=== PATIENT | male | born 1970 | race Caucasian/White ===

== ENCOUNTER 2022-04-29 00:56 | Emergency (ER) | payer BC ==
[2022-04-29] MEDS ORDERED: Ondansetron ODT 8 MG TAB ONE (01:02)
[2022-04-29] MEDS ORDERED: Morphine 4 MG/ML VIAL ONE (01:55)
[2022-04-29 02:02] LABS: #Lymphocytes 3.2 thou/uL (1.20-3.40); #Monocytes 1.1 thou/uL (0.11-0.59); #Neutrophils 12.6 thou/uL (1.40-6.50); %Basophils 0.2 % (0.0-1.0); %Eosinophils 0.1 % (0.0-10.0); %Lymphocytes 18.8 % (21.0-51.0); %Monocytes 6.6 % (0.0-10.0); %Neutrophils 74.4 % (42.0-75.0); Hemoglobin 13.3 g/dL (14.0-18.0); Mean Corpuscular HGB CONC 33.4 g/dL (32.0-36.0); Mean Corpuscular Volume 92.8 fL (78.0-98.0); Mean Platelet Volume 8.4 fL (7.4-10.4); Platelet Count 395 thou/uL (130-400); RBC Distribution Width 11.5 % (11.5-14.5); Red Blood Cell (RBC) Count 4.29 mill/uL (4.70-6.10); White Blood Cell (WBC) Count 16.9 thou/uL (4.8-10.8)
[2022-04-29] MEDS ORDERED: Ondansetron PF 4 MG/2 ML Vial ONE (02:09)
[2022-04-29 02:18] LABS: ALT (SGPT) 12 U/L (8-55); AST (SGOT) 13 U/L (5-34); Albumin 4.6 g/dL (3.5-5.0); Alkaline Phosphatase 83 U/L (40-110); Anion Gap 20 mmol/L (10-20); BUN (Urea Nitrogen) 30 mg/dL (8.4-25.7); Bilirubin, Total 1.1 mg/dL (0.2-1.2); Calc. Creatinine Clearance 0 mL/min (70-130); Calcium 9.7 mg/dL (7.8-10.44); Carbon Dioxide 20 mmol/L (22-29); Chloride 94 mmol/L (98-107); Estimated GFR 56; Globulin 3.4 g/dL (2.4-3.5); Glucose 287 mg/dL (70-105); Lipase 16 U/L (8-78); Potassium 3.7 mmol/L (3.5-5.1); Sodium 130 mmol/L (136-145)
[2022-04-29] MEDS ORDERED: diphenhydrAMINE 50 MG/ML VIAL ONE (03:07)
[2022-04-29] MEDS ORDERED: Haloperidol Lactate 5 MG/ML VIAL ONE (03:07)
[2022-04-29] MEDS ORDERED: Ketorolac Tromethamine 30 MG/ML VIAL ONE (06:05)
[2022-04-29] MEDS ORDERED: Midazolam HCl 2 mg/2 ml Vial ONE (06:05)
[2022-04-29] MEDS ORDERED: Iopamidol-370 76% 500 ML 1 ML ONE (08:34)
== END 2022-04-29 06:50 | disposition home or self-care (01) ==
LOC: ERS 00:56
DX: R10.13 Epigastric pain (principal); R73.9 Hyperglycemia, unspecified; R33.9 Retention of urine, unspecified; R11.2 Nausea with vomiting, unspecified
CPT/HCPCS: 36415; 51702; 74177; 76705; 80053; 83690; 84484; 85025; 86850; 86900; 86901; 93005; 96374; 96375; J1200; J1630; J1885; J2250; J2270; J2405; Q0162; Q9967

== ENCOUNTER 2022-04-30 11:40 | Inpatient (IN) | payer BC ==
[2022-04-30] MEDS ORDERED: Morphine 4 MG/ML VIAL ONE (12:18)
[2022-04-30] MEDS ORDERED: Ondansetron PF 4 MG/2 ML Vial ONE ×2 (12:18→14:07)
[2022-04-30] MEDS ORDERED: Pantoprazole 40 MG VIAL ONE (12:18)
[2022-04-30 12:21] LABS: #Lymphocytes 1.8 thou/uL (1.20-3.40); #Monocytes 0.8 thou/uL (0.11-0.59); #Neutrophils 14.4 thou/uL (1.40-6.50); %Basophils 0.1 % (0.0-1.0); %Lymphocytes 10.3 % (21.0-51.0); %Monocytes 4.5 % (0.0-10.0); Mean Corpuscular HGB CONC 33.1 g/dL (32.0-36.0); Mean Corpuscular Hemoglobin 31.1 pg (27.0-31.0); Mean Corpuscular Volume 94.1 fL (78.0-98.0); Mean Platelet Volume 8.4 fL (7.4-10.4); Platelet Count 404 thou/uL (130-400); RBC Distribution Width 11.6 % (11.5-14.5); Red Blood Cell (RBC) Count 4.51 mill/uL (4.70-6.10)
[2022-04-30 12:59] LABS: ALT (SGPT) 12 U/L (8-55); AST (SGOT) 13 U/L (5-34); Albumin 4.5 g/dL (3.5-5.0); Alkaline Phosphatase 80 U/L (40-110); Anion Gap 19 mmol/L (10-20); BUN (Urea Nitrogen) 28 mg/dL (8.4-25.7); Calc. Creatinine Clearance 0 mL/min (70-130); Calcium 9.7 mg/dL (7.8-10.44); Carbon Dioxide 22 mmol/L (22-29); Estimated GFR 74; Globulin 3.6 g/dL (2.4-3.5); Glucose 283 mg/dL (70-105); Lipase 4 U/L (8-78); Potassium 3.9 mmol/L (3.5-5.1); Protein, Total 8.1 g/dL (6.0-8.3)
[2022-04-30 13:26] LABS: Chloride 97 mmol/L (98-107); Sodium 134 mmol/L (136-145)
[2022-04-30] MEDS ORDERED: Promethazine HCl 25 MG in Sodium Chloride 0.9% 50 ML IVPB SCH (14:30)
[2022-04-30 15:11] LABS: Bacteria/HPF Rare-Few HPF (None Seen); Bilirubin Negative (Negative); Blood, Urine 3+ (Negative); Clarity Hazy (Clear); Glucose, Urine (Dipstick) Greater than 1000 mg/dL (Negative); Ketone, Urine 100 mg/dL (Negative); Leukocyte 25 Leu/uL (Negative); Nitrite Negative (Negative); Protein, Urine (Dipstick) 30 mg/dL (Neg-Trace); RBC/HPF 21-50 HPF (0-3); Specific Gravity, Urine 1.026 (1.002-1.036); Squamous Epithelial 0-3 HPF (0-3); Urobilinogen Normal mg/dL (Less than 2); pH, Urine 5.5 (5.0-9.0)
[2022-04-30 16:24] VITALS: BMI 22.8
[2022-04-30] MEDS ORDERED: Sodium Chloride 0.9% 1,000 ML IV SCH (16:30)
[2022-04-30] MEDS ORDERED: Ondansetron PF 4 MG/2 ML Vial IVP PRN (16:30)
[2022-04-30] MEDS ORDERED: Ondansetron ODT 4 MG TAB SL PRN (16:30)
[2022-04-30] MEDS ORDERED: Morphine 2 MG/ML VIAL SLOW IVP PRN (16:35)
[2022-04-30] MEDS ORDERED: Acetaminophen 325 MG TAB PO PRN (16:38)
[2022-04-30] MEDS ORDERED: Electrolyte Replacement Protocol 1 EACH FS SCH (16:45)
[2022-04-30] MEDS: Sodium Chloride 0.9% 1,000 ML IV SCH (16:53)
[2022-04-30] MEDS: cefTRIAXone\\ROCEPHIN 1 GM in Sodium Chloride 0.9% 100 ML IVPB SCH (16:57)
[2022-04-30] MEDS: Morphine 4 MG/ML VIAL SLOW IVP PRN (17:45)
[2022-04-30] MEDS: Promethazine HCl 12.5 MG in Sodium Chloride 0.9% 50 ML IVPB PRN (19:50)
[2022-04-30] MEDS: Pantoprazole 40 MG VIAL IVP SCH (19:51)
[2022-04-30] MEDS: Tamsulosin HCl 0.4 MG CAP PO SCH (19:52)
[2022-05-01] MEDS: Sodium Chloride 0.9% 1,000 ML IV SCH ×5 (01:54→22:25)
[2022-05-01] MEDS: Morphine 4 MG/ML VIAL SLOW IVP PRN ×4 (04:25→20:52)
[2022-05-01] MEDS: Promethazine HCl 12.5 MG in Sodium Chloride 0.9% 50 ML IVPB PRN ×3 (04:27→20:40)
[2022-05-01 06:00] LABS: Anion Gap 15 mmol/L (10-20); BUN (Urea Nitrogen) 18 mg/dL (8.4-25.7); Calc. Creatinine Clearance 98 mL/min (70-130); Calcium 8.7 mg/dL (7.8-10.44); Carbon Dioxide 22 mmol/L (22-29); Chloride 104 mmol/L (98-107); Estimated GFR 105; Glucose 174 mg/dL (70-105); Magnesium 2.2 mg/dL (1.6-2.6); Potassium 3.2 mmol/L (3.5-5.1); Sodium 138 mmol/L (136-145)
[2022-05-01 06:27] LABS: Hemoglobin 12.9 g/dL (14.0-18.0); Lymphocytes 26 % (21-51); MDiff Complete? YES; Mean Corpuscular HGB CONC 32.2 g/dL (32.0-36.0); Mean Corpuscular Hemoglobin 30.5 pg (27.0-31.0); Mean Corpuscular Volume 94.6 fL (78.0-98.0); Mean Platelet Volume 8.6 fL (7.4-10.4); Monocytes 12 % (0-10); Neutrophil 59 % (42-75); Platelet Count 396 thou/uL (130-400); Platelet Morphology Comment Appears Adequate; RBC Distribution Width 11.7 % (11.5-14.5); RBC Morphology Normal; Reactive Lymphocytes 3 % (0-10); Red Blood Cell (RBC) Count 4.22 mill/uL (4.70-6.10); White Blood Cell (WBC) Count 20.1 thou/uL (4.8-10.8)
[2022-05-01] MEDS ORDERED: Potassium Chloride 20 MEQ TAB PO SCH (08:00)
[2022-05-01] MEDS: hydrALAZINE 20 MG/ML VIAL SLOW IVP PRN ×2 (08:05→22:23)
[2022-05-01] MEDS: Pantoprazole 40 MG VIAL IVP SCH ×2 (08:27→20:39)
[2022-05-01] MEDS ORDERED: FLU VACC QS2022-23(6MOS UP)/PF 60 MCG/0.5 ML SYRINGE IM ONE (09:00)
[2022-05-01] MEDS ORDERED: Ondansetron PF 4 MG/2 ML Vial IVP SCH (09:15)
[2022-05-01] MEDS ORDERED: Dextrose 5% in Water 1,000 ML IV PRN (14:07)
[2022-05-01] MEDS ORDERED: HumaLOG 300 UNITS/3 ML VIAL SC PRN ×2 (14:07)
[2022-05-01] MEDS ORDERED: Dextrose 50% Abboject 50 ML SYRINGE SLOW IVP PRN (14:07)
[2022-05-01] MEDS: Ondansetron PF 4 MG/2 ML Vial IVP PRN (14:19)
[2022-05-01] MEDS: Metoclopramide HCl 10 MG/2 ML VIAL IVP SCH ×2 (15:16→20:40)
[2022-05-01] MEDS: cefTRIAXone\\ROCEPHIN 1 GM in Sodium Chloride 0.9% 100 ML IVPB SCH (17:16)
[2022-05-01] MEDS: Tamsulosin HCl 0.4 MG CAP PO SCH (20:40)
[2022-05-02] MEDS: Sodium Chloride 0.9% 1,000 ML IV SCH ×5 (02:15→17:37)
[2022-05-02] MEDS: Metoclopramide HCl 10 MG/2 ML VIAL IVP SCH ×4 (02:41→19:46)
[2022-05-02] MEDS: Promethazine HCl 12.5 MG in Sodium Chloride 0.9% 50 ML IVPB PRN (02:49)
[2022-05-02] MEDS: Morphine 4 MG/ML VIAL SLOW IVP PRN ×4 (04:59→23:31)
[2022-05-02 06:14] LABS: #Lymphocytes 2.1 thou/uL (1.20-3.40); #Monocytes 1.1 thou/uL (0.11-0.59); #Neutrophils 10.3 thou/uL (1.40-6.50); %Basophils 0.1 % (0.0-1.0); %Eosinophils 0.2 % (0.0-10.0); %Lymphocytes 15.2 % (21.0-51.0); %Monocytes 7.8 % (0.0-10.0); %Neutrophils 76.7 % (42.0-75.0); Hemoglobin 12.3 g/dL (14.0-18.0); Mean Corpuscular Hemoglobin 30.8 pg (27.0-31.0); Mean Corpuscular Volume 96.2 fL (78.0-98.0); Mean Platelet Volume 8.6 fL (7.4-10.4); Platelet Count 368 thou/uL (130-400); RBC Distribution Width 11.7 % (11.5-14.5); Red Blood Cell (RBC) Count 3.98 mill/uL (4.70-6.10); White Blood Cell (WBC) Count 13.5 thou/uL (4.8-10.8)
[2022-05-02 06:53] LABS: Anion Gap 17 mmol/L (10-20); BUN (Urea Nitrogen) 17 mg/dL (8.4-25.7); Calc. Creatinine Clearance 99 mL/min (70-130); Calcium 8.2 mg/dL (7.8-10.44); Carbon Dioxide 19 mmol/L (22-29); Chloride 108 mmol/L (98-107); Estimated GFR 105; Glucose 184 mg/dL (70-105); Potassium 3.3 mmol/L (3.5-5.1); Sodium 141 mmol/L (136-145)
[2022-05-02] MEDS ORDERED: Potassium Chloride 20 MEQ TAB PO SCH (08:00)
[2022-05-02] MEDS: Pantoprazole 40 MG VIAL IVP SCH ×2 (09:05→19:46)
[2022-05-02] MEDS: hydrALAZINE 20 MG/ML VIAL SLOW IVP PRN ×2 (09:18→19:45)
[2022-05-02] MEDS ORDERED: Amlodipine 5 MG TAB PO SCH (11:15)
[2022-05-02] MEDS: Tamsulosin HCl 0.4 MG CAP PO SCH (19:46)
[2022-05-02] MEDS: Ondansetron PF 4 MG/2 ML Vial IVP PRN (23:29)
[2022-05-03] MEDS: Metoclopramide HCl 10 MG/2 ML VIAL IVP SCH ×4 (02:36→20:27)
[2022-05-03] MEDS: Sodium Chloride 0.9% 1,000 ML IV SCH ×4 (02:59→20:27)
[2022-05-03] MEDS: Promethazine HCl 12.5 MG in Sodium Chloride 0.9% 50 ML IVPB PRN ×2 (03:13→14:44)
[2022-05-03] MEDS: hydrALAZINE 20 MG/ML VIAL SLOW IVP PRN (03:18)
[2022-05-03] MEDS: Ondansetron PF 4 MG/2 ML Vial IVP PRN (05:05)
[2022-05-03 07:00] LABS: #Lymphocytes 2.6 thou/uL (1.20-3.40); %Eosinophils 0.2 % (0.0-10.0); %Lymphocytes 17.7 % (21.0-51.0); %Monocytes 6.6 % (0.0-10.0); %Neutrophils 75.4 % (42.0-75.0); Hemoglobin 12.5 g/dL (14.0-18.0); Mean Corpuscular HGB CONC 33.4 g/dL (32.0-36.0); Mean Corpuscular Hemoglobin 32.2 pg (27.0-31.0); Mean Corpuscular Volume 96.2 fL (78.0-98.0); Mean Platelet Volume 8.6 fL (7.4-10.4); Platelet Count 352 thou/uL (130-400); RBC Distribution Width 11.7 % (11.5-14.5); Red Blood Cell (RBC) Count 3.89 mill/uL (4.70-6.10); White Blood Cell (WBC) Count 14.6 thou/uL (4.8-10.8)
[2022-05-03 07:26] LABS: Anion Gap 13 mmol/L (10-20); BUN (Urea Nitrogen) 15 mg/dL (8.4-25.7); Calc. Creatinine Clearance 112 mL/min (70-130); Calcium 8.3 mg/dL (7.8-10.44); Carbon Dioxide 23 mmol/L (22-29); Chloride 101 mmol/L (98-107); Estimated GFR 109; Glucose 197 mg/dL (70-105); Sodium 134 mmol/L (136-145)
[2022-05-03] MEDS ORDERED: Potassium Chloride 20 MEQ TAB PO SCH (08:00)
[2022-05-03] MEDS: Pantoprazole 40 MG VIAL IVP SCH ×2 (08:20→20:27)
[2022-05-03] MEDS ORDERED: Amlodipine 5 MG TAB PO SCH ×2 (09:00→12:15)
[2022-05-03] MEDS ORDERED: Ketamine 50 MG/ML (10ML VIAL) ONE (11:12)
[2022-05-03] MEDS ORDERED: PROPOFOL 200 MG/20 ML VIAL ONE (11:59)
[2022-05-03] MEDS ORDERED: Ondansetron HCl/PF 4 MG/2 ML Vial IVP PRN (12:22)
[2022-05-03] MEDS ORDERED: Promethazine HCl 25 MG/ML VIAL IVPB PRN (12:22)
[2022-05-03] MEDS ORDERED: Promethazine HCl 25 MG/ML VIAL IM PRN (12:22)
[2022-05-03] MEDS ORDERED: Ondansetron PF 4 MG/2 ML Vial ONE (12:47)
[2022-05-03] MEDS ORDERED: Labetalol HCl 100 MG/20 ML VIAL ONE (12:58)
[2022-05-03] MEDS ORDERED: Insulin Glargine 30 UNITS/0.3 ML VIAL SC SCH (15:00)
[2022-05-03] MEDS: Tamsulosin HCl 0.4 MG CAP PO SCH ×2 (20:26→20:27)
[2022-05-04] MEDS: hydrALAZINE 20 MG/ML VIAL SLOW IVP PRN ×2 (00:27→04:20)
[2022-05-04] MEDS: Metoclopramide HCl 10 MG/2 ML VIAL IVP SCH ×3 (03:05→14:52)
[2022-05-04] MEDS: Sodium Chloride 0.9% 1,000 ML IV SCH ×2 (03:05→09:50)
[2022-05-04] MEDS: Ondansetron PF 4 MG/2 ML Vial IVP PRN (03:20)
[2022-05-04 06:53] LABS: #Basophils 0.1 thou/uL (0.0-0.2); #Eosinphils 0.1 thou/uL (0.0-0.7); #Lymphocytes 4.4 thou/uL (1.20-3.40); #Monocytes 1.2 thou/uL (0.11-0.59); #Neutrophils 10.1 thou/uL (1.40-6.50); %Basophils 0.3 % (0.0-1.0); %Eosinophils 0.5 % (0.0-10.0); %Lymphocytes 27.6 % (21.0-51.0); %Monocytes 7.5 % (0.0-10.0); %Neutrophils 64.1 % (42.0-75.0); Hemoglobin 11.9 g/dL (14.0-18.0); Mean Corpuscular HGB CONC 32.4 g/dL (32.0-36.0); Mean Corpuscular Hemoglobin 30.9 pg (27.0-31.0); Mean Corpuscular Volume 95.3 fL (78.0-98.0); Mean Platelet Volume 8.4 fL (7.4-10.4); Platelet Count 338 thou/uL (130-400); RBC Distribution Width 11.6 % (11.5-14.5); Red Blood Cell (RBC) Count 3.85 mill/uL (4.70-6.10); White Blood Cell (WBC) Count 15.8 thou/uL (4.8-10.8)
[2022-05-04 07:16] LABS: Anion Gap 10 mmol/L (10-20); BUN (Urea Nitrogen) 10 mg/dL (8.4-25.7); Calc. Creatinine Clearance 122 mL/min (70-130); Calcium 7.9 mg/dL (7.8-10.44); Carbon Dioxide 25 mmol/L (22-29); Chloride 102 mmol/L (98-107); Estimated GFR 112; Glucose 159 mg/dL (70-105); Sodium 134 mmol/L (136-145)
[2022-05-04 07:23] LABS: Potassium 2.9 mmol/L (3.5-5.1)
[2022-05-04] MEDS: Potassium Chloride 20 MEQ TAB PO SCH ×2 (08:14→11:42)
[2022-05-04] MEDS: Pantoprazole 40 MG VIAL IVP SCH (08:16)
[2022-05-04] MEDS ORDERED: Amlodipine 5 MG TAB PO SCH (09:00)
[2022-05-04] MEDS ORDERED: Insulin Glargine 30 UNITS/0.3 ML VIAL SC SCH (09:00)
[2022-05-04] MEDS ORDERED: Potassium Chloride 20 MEQ TAB PO SCH (17:00)
[2022-05-07 10:49] VITALS: BP 174/85
[2022-05-07 10:54] VITALS: TEMP 98.2
== END 2022-05-04 16:05 | disposition home or self-care (01) | DRG 392 ==
LOC: ERS 11:40 → T4-A 16:12 → OBSVTOIN 05-01 14:21
PROVIDERS: ADMIT Hospitalist; ATTEND Family Medicine
PROC: 0DB78ZX Excision of Stomach, Pylorus, Via Natural or Artificial Opening Endoscopic, Diagnostic (ICD-10-PCS; principal; 2022-05-03)
DX: K21.00 Gastro-esophageal reflux disease with esophagitis, without bleeding (principal); N17.9 Acute kidney failure, unspecified; E11.65 Type 2 diabetes mellitus with hyperglycemia; R33.9 Retention of urine, unspecified; E86.0 Dehydration; Z20.822 Contact with and (suspected) exposure to COVID-19; K29.70 Gastritis, unspecified, without bleeding; K63.5 Polyp of colon; Z90.81 Acquired absence of spleen
CPT/HCPCS: 36415; 36416; 51702; 71045; 74177; 76705; 80048; 80053; 81003; 81015; 82271; 83036; 83690; 83735; 84484; 85025; 86850; 86900; 86901; 87086; 88305; 88342; 93005; 96361; 96365; 96366; 96374; 96375; 96376; C9113; G0378; J0360; J0696; J1200; J1630; J1815; J1885; J2250; J2270; J2405; J2550; J2704; J2765; J3490; J7050; Q0162; Q9967; U0003; U0005

== ENCOUNTER 2022-06-06 09:07 | Outpatient (CLI) | payer BC | END 2022-06-06 09:08 | disposition home or self-care (01) | LOC: DTY/OP 09:07 | PROVIDERS: ATTEND Family Medicine Sports Medicine | DX: E11.8 Type 2 diabetes mellitus with unspecified complications (principal) | CPT/HCPCS: 97802 ==

== ENCOUNTER 2022-06-14 03:26 | Emergency (ER) | payer BC ==
[2022-06-14] MEDS ORDERED: Ondansetron PF 4 MG/2 ML Vial ONE (03:46)
[2022-06-14] MEDS ORDERED: Morphine 4 MG/ML VIAL ONE (03:46)
[2022-06-14 04:00] LABS: #Lymphocytes 2.1 thou/uL (1.20-3.40); #Monocytes 0.6 thou/uL (0.11-0.59); #Neutrophils 8.8 thou/uL (1.40-6.50); %Basophils 0.1 % (0.0-1.0); %Eosinophils 0.2 % (0.0-10.0); %Monocytes 4.8 % (0.0-10.0); %Neutrophils 76.8 % (42.0-75.0); Hemoglobin 12.5 g/dL (14.0-18.0); Mean Corpuscular HGB CONC 32.9 g/dL (32.0-36.0); Mean Corpuscular Hemoglobin 30.9 pg (27.0-31.0); Mean Platelet Volume 8.3 fL (7.4-10.4); Platelet Count 385 10x3/uL (130-400); RBC Distribution Width 11.7 % (11.5-14.5); Red Blood Cell (RBC) Count 4.04 mill/uL (4.70-6.10); White Blood Cell (WBC) Count 11.5 10x3/uL (4.8-10.8)
[2022-06-14] MEDS ORDERED: Pantoprazole 40 MG VIAL ONE (04:17)
[2022-06-14 04:22] LABS: ALT (SGPT) 30 U/L (8-55); AST (SGOT) 18 U/L (5-34); Albumin 4.5 g/dL (3.5-5.0); Alkaline Phosphatase 89 U/L (40-110); Anion Gap 17 mmol/L (10-20); BUN (Urea Nitrogen) 18 mg/dL (8.4-25.7); Bilirubin, Total 0.8 mg/dL (0.2-1.2); Calc. Creatinine Clearance 0 mL/min (70-130); Calcium 9.4 mg/dL (7.8-10.44); Carbon Dioxide 23 mmol/L (22-29); Chloride 99 mmol/L (98-107); Estimated GFR 104; Globulin 3.1 g/dL (2.4-3.5); Glucose 224 mg/dL (70-105); Lipase 7 U/L (8-78); Potassium 3.5 mmol/L (3.5-5.1); Protein, Total 7.6 g/dL (6.0-8.3); Sodium 135 mmol/L (136-145)
[2022-06-14 04:38] LABS: Troponin I Less than 0.010 ng/mL (< 0.028)
[2022-06-14] MEDS ORDERED: Haloperidol Lactate 5 MG/ML VIAL ONE (06:20)
[2022-06-14 07:11] LABS: Bilirubin Negative (Negative); Blood, Urine Negative (Negative); Clarity Clear (Clear); Glucose, Urine (Dipstick) >=1000 mg/dL (Negative); Ketone, Urine 40 mg/dL (Negative); Leukocyte Negative Leu/uL (Negative); Nitrite Negative (Negative); Protein, Urine (Dipstick) Negative (Neg-Trace); Specific Gravity, Urine 1.014 (1.002-1.036); Urobilinogen Normal mg/dL (Less than 2)
[2022-06-14] MEDS ORDERED: Iopamidol-370 76% 500 ML 1 ML ONE (14:48)
== END 2022-06-14 07:56 | disposition home or self-care (01) ==
LOC: ERS 03:26
DX: R11.2 Nausea with vomiting, unspecified (principal); R10.13 Epigastric pain; R03.0 Elevated blood-pressure reading, without diagnosis of hypertension; E11.9 Type 2 diabetes mellitus without complications
CPT/HCPCS: 74177; 80053; 81003; 83690; 84484; 85025; 93005; 96374; 96375; C9113; J1630; J2270; J2405; Q9967

== ENCOUNTER 2022-11-26 02:32 | Emergency (ER) | payer BC, OTHER ==
[2022-11-26 03:59] LABS: Actual Bicarbonate (HCO3v) 24.1 mEq/L (22-28); Base Excess 1.2 mEq/L (-2.0 to +3.0); Calcium, Ionized (venous) 1.06 mmol/L (1.16-1.32); Chloride (VBG) 103 mmol/L (98-106); Hematocrit-VBG 34 % (42.0-52.0); Hemoglobin (Hb) 11.5 g/dL (13.1-17.2); Potassium (VBG) 3.93 mmol/L (3.70-5.30); Sodium 138.8 mmol/L (133-146); pH (venous) 7.487 (7.32-7.43)
[2022-11-26 04:05] LABS: #Monocytes 0.5 thou/uL (0.11-0.59); #Neutrophils 9.3 thou/uL (1.40-6.50); %Basophils 0.3 % (0.0-1.0); %Monocytes 4.2 % (0.0-10.0); %Neutrophils 83.1 % (42.0-75.0); Hemoglobin 10.9 g/dL (14.0-18.0); Mean Corpuscular HGB CONC 33.4 g/dL (32.0-36.0); Mean Corpuscular Hemoglobin 30.4 pg (27.0-31.0); Mean Corpuscular Volume 91.1 fl (78.0-98.0); Mean Platelet Volume 10.9 fL (7.4-10.4); Platelet Count 333 10x3/uL (130-400); RBC Distribution Width 13.3 % (11.5-14.5); Red Blood Cell (RBC) Count 3.58 mill/uL (4.70-6.10); White Blood Cell (WBC) Count 11.2 10x3/uL (4.8-10.8)
[2022-11-26] MEDS ORDERED: Ondansetron PF 4 MG/2 ML Vial ONE (04:05)
[2022-11-26 04:27] LABS: ALT (SGPT) 29 U/L (8-55); AST (SGOT) 15 U/L (5-34); Albumin 4.5 g/dL (3.5-5.0); Alkaline Phosphatase 57 U/L (40-110); Anion Gap 15 mmol/L (10-20); BUN (Urea Nitrogen) 21 mg/dL (8.4-25.7); Bilirubin, Total 0.6 mg/dL (0.2-1.2); CK (CPK) 62 U/L (30-200); Calc. Creatinine Clearance 0 mL/min (70-130); Calcium 9.4 mg/dL (7.8-10.44); Carbon Dioxide 24 mmol/L (22-29); Chloride 102 mmol/L (98-107); Estimated GFR 86; Globulin 2.9 g/dL (2.4-3.5); Glucose 238 mg/dL (70-105); Lipase Less than 4 U/L (8-78); Potassium 3.9 mmol/L (3.5-5.1); Protein, Total 7.4 g/dL (6.0-8.3); Sodium 137 mmol/L (136-145)
[2022-11-26] MEDS ORDERED: Promethazine HCl 25 MG in Sodium Chloride 0.9% 50 ML IVPB SCH (05:30)
[2022-11-26] MEDS ORDERED: fentaNYL 50 mcg/mL 1 mL Vial ONE (05:32)
== END 2022-11-26 06:00 | disposition home or self-care (01) ==
LOC: ERS 02:32
DX: K31.84 Gastroparesis (principal); D72.829 Elevated white blood cell count, unspecified; E11.9 Type 2 diabetes mellitus without complications; I10 Essential (primary) hypertension
CPT/HCPCS: 36416; 80053; 82550; 82805; 83690; 84484; 85025; 93005; 96361; 96365; 96375; J2405; J2550; J3010